=== PATIENT | female | born 1970 | race Caucasian/White ===

== ENCOUNTER → 2016-05-22 | Outpatient (CLI) | payer BC ==
[~2016-05-22] MED LIST: CHOL100010 PO; CRFL PO; ENOX40IN SQ; ERGO1CAP35 PO; GLC/500 PO; HYDR-1838 PO; MULT-1027 PO; ONDA4TAB10 SL; OXYC-292 PO; PARO1TAB27 PO
[2016-05-22 09:24] LABS: BASO % 0.5 %; BASO ABS # 0.03 K/uL (0-0.2); COMPLETE YES; EOS % 1.5 %; HEMATOCRIT 40.9 % (37-47); IG% 0.3 %; LYMPH % 12.2 %; LYMPH ABS # 0.73 K/uL (1.2-3.4); MEAN CELL VOLUME 85.9 fL (80-100); MEAN CORPUSCULAR HEMOGLOBIN 27.5 pg (25-34); MEAN PLATELET VOLUME 10.3 fL (7.4-10.4); MONO % 8.7 %; NEUT % 76.8 %; PLATELET COUNT 266 K/uL (130-400); RED BLOOD COUNT 4.76 M/uL (4.2-5.4)
[2016-05-22 09:40] LABS: ESTIMATED AVERAGE GLUCOSE 171 mg/dl; HA1C FLAG Normal (Normal)
[2016-05-22 10:16] LABS: ALT/SGPT 22 U/L (12-78); BLOOD UREA NITROGEN 12 mg/dl (7-18); CALCIUM 8.6 mg/dl (8.5-10.1); CARBON DIOXIDE 26 mmol/L (21-32); CHLORIDE 102 mmol/L (98-107); CREATININE 0.69 mg/dl (0.60-1.20); GLUCOSE 116 mg/dl (70-99); POTASSIUM 4.1 mmol/L (3.5-5.1); SODIUM 138 mmol/L (136-145)
[2016-05-22 10:20] LABS: ALB/GLOB RATIO 1.2 (0.9-2); ALKALINE PHOSPHATASE 94 U/L (45-117); AST/SGOT 25 U/L (15-37); CHOLESTEROL 194 mg/dl (0-200); CHOLESTEROL/HDL RATIO 5.5; HDL CHOLESTEROL 35 mg/dl; LDL CHOLESTEROL CALCULATED 122 mg/dl; TRIGLYCERIDES 186 mg/dl (0-150); VERY LOW DENSITY LIPOPROT CALC 37 mg/dl
== END | disposition home or self-care (01) ==
LOC: C.LAB1850 07:56
PROVIDERS: ATTEND Family Medicine
DX: D50.9 Iron deficiency anemia, unspecified (principal); E53.8 Deficiency of other specified B group vitamins; E11.9 Type 2 diabetes mellitus without complications

== ENCOUNTER → 2016-06-09 | Outpatient (CLI) | payer BC ==
--- NOTE | 2016-06-09 16:18 | MAMMOGRAPHY REPORT ---
BILATERAL DIGITAL SCREENING MAMMOGRAM TOMOSYNTHESIS WITH CAD: 06/09/2016 CLINICAL HISTORY: Routine screening. Patient has no complaints. TECHNIQUE: Breast tomosynthesis in addition to standard 2D mammography was performed. Current study was also evaluated with a Computer Aided Detection (CAD) system. COMPARISON: Comparison is made to exams dated: 09/17/2010 ultrasound, 09/17/2010 mammogram, 09/04/2010 m ammogram, 06/24/2009 mammogram, and 06/24/2009 ultrasound - [facility]. BREAST COMPOSITION: There are scattered areas of fibroglandular density in both breasts. FINDINGS: There are stable benign-appearing calcifications in the breasts. No suspicious mass, arch itectural distortion or cluster of microcalcifications is seen. IMPRESSION: ACR BI-RADS CATEGORY 1: NEGATIVE There is no mammographic evidence of malignancy. A 1 year screening mammogram is recommended. The p atient will receive written notification of the results. Approximately 10% of breast cancers are not detected with mammography. A negative mammographic repor t should not delay biopsy if a clinically suggestive mass is present. Margot Aguero M.D. ay/:06/09/2016 15:36:25 Technician Helper Instrument: Gaye HERNÁNDEZ)([place]), [facility] letter sent: Normal 1/2 BI-RADS Code: ACR BI-RADS Category 1: Negative
== END | disposition home or self-care (01) ==
LOC: C.MAMM 13:29
PROVIDERS: ATTEND Family Medicine
DX: Z12.31 Encounter for screening mammogram for malignant neoplasm of breast (principal)

== ENCOUNTER 2016-06-18 10:06 | Emergency (ER) | payer BC ==
[~2016-06-18] VITALS: Ht 162.6 cm; Wt 103.6 kg
[~2016-06-18 10:06] MED LIST changes: -CHOL100010 PO; -CRFL PO; -GLC/500 PO; -MULT-1027 PO; -ONDA4TAB10 SL
[2016-06-18 10:09] VITALS: TEMP 36.8; Ht 162.6 cm; Wt 103.6 kg
[2016-06-18] MEDS ORDERED: MULT-1027 PO (10:22)
[2016-06-18] MEDS ORDERED: CHOL100010 PO (10:22)
[2016-06-18] MEDS ORDERED: GLC/500 PO (10:22)
[2016-06-18] MEDS ORDERED: SODIUM CHLORIDE 0.9% 1000ML 1,000 ML IV STA (10:28)
[2016-06-18] MEDS ORDERED: ONDANSETRON INJ 2 MG/ML 2 ML VIAL IV STA (10:28)
[2016-06-18] MEDS ORDERED: KETOROLAC TROMETHAMINE 30 MG/ML VIAL IV STA (10:28)
--- NOTE | 2016-06-18 10:33 | EMERGENCY ROOM VISIT NOTE ---
History Report prepared by Tyler: Carlos Espinosa Under the Supervision of: Dr. Parminder Coley M.D. First contact with patient: 10:15 Chief Complaint: ABDOMINAL PAIN Stated Complaint: ABD. SORENESS, PAIN WHEN EATING/DRINKING Nursing Triage Summary: Pt reports abd discomfort for the past couple days. "Anytime I eat or drink I get upper abd pain. I have been tender and distended for a couple weeks. I had vomiting after I ate. I've had gastric bypass in 2009 and this isn't anything with that. I've had upper and lower GI's done within the past couple years and everything was fine." History of Present Illness The patient is a 46 year old female who presents to the Emergency Room with complaints of persistent abdominal pain that started a few days ago. She describes the pain as a pressure, and the pain is worsened by eating or drinking. She did vomit 2 days ago after eating. The patient denies any diarrhea. She had gastric bypass surgery 6 years ago, and had no complications with that. Her surgical site was reviewed and was fine. The patient notes that she has vasovagal syncope. She also is diabetic. Source of History: patient Onset: A few days ago Position: abdomen Quality: other (pressure) Timing: other (persistent) Modifying Factors (Worsening): eating, drinking Associated Symptoms: + vomiting, No diarrhea Note: No other associated symptoms noted. Review of Systems See HPI for pertinent positives & negatives. A total of 10 systems reviewed and were otherwise negative. Past Medical & Surgical Medical Problems: (1) Diabetes (2) Vasovagal syncope Surgical Problems: (1) Gastric bypass status for obesity Family History Diabetes mellitus FH: cancer Social History Smoking Status: Never Smoker Alcohol Use: none Drug Use: none Marital Status: Housing Status: lives with family Occupation Status: employed Current/Historical Medications Scheduled Cholecalciferol (Vitamin D), 1 TAB PO DAILY Metformin Hcl (Glucophage), 2 TAB PO DAILY Multiple Vitamin (Multi Vitamin), 1 TAB PO DAILY Ondasetron Odt (Zofran Odt), 4 MG SL Q6H Paroxetine (Paxil), 20 MG PO DAILY Sucralfate (Carafate), 10 ML PO QID Allergies Coded Allergies: Sulfa Drugs (Verified Allergy, Mild, 06/18/16) Lisinopril (Verified Adverse Reaction, Intermediate, COUGH, 06/18/16) NSAIDs (Verified Adverse Reaction, Unknown, NEED STOMACH PROTECTION WITH NSAIDS HAD GASTRIC BYPASS, 06/18/16) Physical Exam Vital Signs Date Time Temp Pulse Resp B/P Pulse Ox O2 Delivery O2 Flow Rate FiO2 06/18/16 13:32 64 16 133/85 97 Room Air 06/18/16 10:09 36.8 69 18 129/82 97 Room Air Physical Exam CONSTITUTIONAL: Moderate painful nauseous distress. HEENT: No icterus, moist mucous membranes NECK: No meningismus, trachea is midline. CARDIOVASCULAR: Regular rate, normal perfusion RESPIRATORY: Unlabored breathing. Clear to auscultation. GASTROINTESTINAL: Mild epigastric tenderness. GENITOURINARY: No flank tenderness MUSCULOSKELETAL: Full range of motion NEUROLOGIC: No acute gross focal deficits. PSYCHIATRIC: Normal affect SKIN: Normal for ethnicity. Medical Decision & Procedures ER Provider Diagnostic Interpretation: X-ray results as stated below per my interpretation and radiologist interpretation. Other radiology results as stated below per my review and radiologist interpretation. ULTRASOUND RIGHT UPPER QUADRANT ABDOMEN CLINICAL HISTORY: Epigastric abdominal pain. COMPARISON STUDY: Abdominal ultrasound dated 04/02/2010 TECHNIQUE: Real-time, grayscale, and color flow sonography of the right upper quadrant of the abdomen was performed. Images are reviewed in the transverse and longitudinal planes. FINDINGS: Liver: The liver is enlarged and demonstrates heterogeneously increased echotexture consistent with hepatic steatosis. Note that this degrades acoustic penetration of the liver. There is no intrahepatic biliary ductal dilatation. The main portal vein is patent. Gallbladder: The gallbladder is normal in appearance. No gallstones are identified. There is no gallbladder wall thickening or pericholecystic fluid. A sonographic Mora's sign is reportedly absent. The common bile duct measures up to 0.4 cm in diameter. Pancreas: Visualized portions of the pancreatic head and body are normal in appearance. Right kidney: Survey images of the right kidney demonstrate normal size and echotexture. There is no hydronephrosis. Ascites: None. IMPRESSION: 1. No acute sonographic abnormality is identified. No gallstones are seen. 2. Hepatomegaly and hepatic steatosis. Electronically signed by: Jose Archer M.D. 06/18/2016 12:45 PM Dictated Date/Time: 06/18/2016 12:44 PM SINGLE VIEW CHEST CLINICAL HISTORY: Epigastric abdominal pain. FINDINGS: An AP, portable, upright chest radiograph is compared to study dated 11/18/2012. The examination is degraded by portable technique and patient rotation. The cardiomediastinal silhouette is unremarkable. There are low lung volumes with mild bibasilar atelectasis. The lungs and pleural spaces are otherwise clear. No pneumothorax is seen. The bony thorax is grossly intact. Postoperative change is noted at the esophageal hiatus. IMPRESSION: Low lung volumes with no active disease in the chest. Electronically signed by: Jose Archer M.D. 06/18/2016 10:55 AM Dictated Date/Time: 06/18/2016 10:54 AM Laboratory Results 06/18/16 10:36 Red Blood Count 4.84, Mean Corpuscular Volume 84.5, Mean Corpuscular Hemoglobin 27.7, Mean Corpuscular Hemoglobin Concent 32.8, Mean Platelet Volume 10.8, Neutrophils (%) (Auto) 74.5, Lymphocytes (%) (Auto) 14.1, Monocytes (%) (Auto) 8.9, Eosinophils (%) (Auto) 1.5, Basophils (%) (Auto) 0.8, Neutrophils # (Auto) 3.92, Lymphocytes # (Auto) 0.74, Monocytes # (Auto) 0.47, Eosinophils # (Auto) 0.08, Basophils # (Auto) 0.04 06/18/16 10:36 Test 06/18/16 10:35 06/18/16 10:36 Urine Color YELLOW Urine Appearance CLEAR (CLEAR) Urine pH 6.5 (4.5-7.5) Urine Specific [place] 1.007 (1.000-1.030) Urine Protein NEG (NEG) Urine Glucose (UA) NEG (NEG) Urine Ketones NEG (NEG) Urine Occult Blood NEG (NEG) Urine Nitrite NEG (NEG) Urine Bilirubin NEG (NEG) Urine Urobilinogen NEG (NEG) Urine Leukocyte Esterase TRACE (NEG) Urine WBC (Auto) 1-5 /hpf (0-5) Urine RBC (Auto) 0-4 /hpf (0-4) Urine Hyaline Casts (Auto) 0 /lpf (0-5) Urine Epithelial Cells (Auto) >30 /lpf (0-5) Urine Bacteria (Auto) NEG (NEG) White Blood Count 5.26 K/uL (4.8-10.8) Red Blood Count 4.84 M/uL (4.2-5.4) Hemoglobin 13.4 g/dL (12.0-16.0) Hematocrit 40.9 % (37-47) Mean Corpuscular Volume 84.5 fL (80-100) Mean Corpuscular Hemoglobin 27.7 pg (25-34) Mean Corpuscular Hemoglobin Concent 32.8 g/dl (32-36) Platelet Count 249 K/uL (130-400) Mean Platelet Volume 10.8 fL (7.4-10.4) Neutrophils (%) (Auto) 74.5 % Lymphocytes (%) (Auto) 14.1 % Monocytes (%) (Auto) 8.9 % Eosinophils (%) (Auto) 1.5 % Basophils (%) (Auto) 0.8 % Neutrophils # (Auto) 3.92 K/uL (1.4-6.5) Lymphocytes # (Auto) 0.74 K/uL (1.2-3.4) Monocytes # (Auto) 0.47 K/uL (0.11-0.59) Eosinophils # (Auto) 0.08 K/uL (0-0.5) Basophils # (Auto) 0.04 K/uL (0-0.2) RDW Standard Deviation 44.9 fL (36.4-46.3) RDW Coefficient of Variation 14.5 % (11.5-14.5) Immature Granulocyte % (Auto) 0.2 % Immature Granulocyte # (Auto) 0.01 K/uL (0.00-0.02) Anion Gap 11.0 mmol/L (3-11) Est Creatinine Clear Calc Drug Dose 110.5 ml/min Estimated GFR () 112.9 Estimated GFR (Non- 97.4 BUN/Creatinine Ratio 13.2 (10-20) Calcium Level 8.9 mg/dl (8.5-10.1) Total Bilirubin 0.5 mg/dl (0.2-1) Direct Bilirubin < 0.1 mg/dl (0-0.2) Aspartate Amino Transf (AST/SGOT) 25 U/L (15-37) Alanine Aminotransferase (ALT/SGPT) 24 U/L (12-78) Alkaline Phosphatase 104 U/L (45-117) Troponin I < 0.015 ng/ml (0-0.045) Total Protein 7.7 gm/dl (6.4-8.2) Albumin 4.1 gm/dl (3.4-5.0) Lipase 76 U/L (73-393) Labs reviewed by ED physician. Medications Administered Medications (Trade) Dose Ordered Sig/Edwin Route Start Time Stop Time Status Last Admin Dose Admin Sodium Chloride (Nss 1000ml) 1,000 ml @ 0 mls/hr Q0M STAT IV 06/18/16 10:28 06/18/16 10:31 DC 06/18/16 10:56 0 MLS/HR Ondansetron HCl (Zofran Inj) 4 mg NOW STAT IV 06/18/16 10:28 06/18/16 10:31 DC 06/18/16 10:56 4 MG Ketorolac Tromethamine (Toradol Inj) 30 mg NOW STAT IV 06/18/16 10:28 06/18/16 10:31 DC 06/18/16 10:56 30 MG ECG Indication: abdominal pain Rate (beats per minute): 68 Rhythm: normal sinus Findings: no ectopy, other (nonspecific-ST findings) ED Course 1020: Past medical records reviewed. The patient was evaluated in room B12B. A complete history and physical examination was performed. 1028: Ordered Toradol Inj 30 mg IV, Zofran Inj 4 mg IV, NSS 1000 ml @ 0 mls/hr Wide Open IV. 1106: I reevaluated the patient and she is resting comfortably. 1348: I reevaluated the patient, and she is going to decide whether or not she wants a CT scan. 1426: I reevaluated the patient and she wants to go home. The patient verbally expressed understanding and agreement of the treatment plan. The patient will be discharged. Medical Decision Differential diagnoses include: viral syndrome, pancreatitis, cholecystitis, heart disease. 46-year-old presents to emergency department for epigastric discomfort and nonbilious nonbloody vomiting without diarrhea over the last day or so. History of gastric bypass 2010 without complications. Mild to moderate epigastric discomfort. Screening evaluation including renal artery ultrasound, lipase, LFTs, EKG, troponin and chest x-ray were all within normal limits. Patient tolerated by mouth prior to discharge after antiemetics IV. We discussed the pros and cons as well as risks and benefits of CT scan. Patient understands to follow-up with her gastric bypass surgeon or return to emergency room for any worsening worrisome symptoms. Carafate 4 times a day and Zofran ODT's written when necessary. Impression Primary Impression: Epigastric pain Scribe Attestation The scribe's documentation has been prepared under my direction and personally reviewed by me in its entirety. I confirm that the note above accurately reflects all work, treatment, procedures, and medical decision making performed by me. Departure Information Dispostion Home / Self-Care Prescriptions Ondasetron Odt (ZOFRAN ODT) 4 Mg Tab 4 MG SL Q6H for Nausea, #20 TAB Prov: Parminder Coley MD 06/18/16 Sucralfate (CARAFATE) 1 Gm/10 Ml Sadie 10 ML PO QID for 7 Days, #280 ML Prov: Parminder Coley MD 06/18/16 Referrals Usha Rider MD (PCP) Forms Call Back Authorization, HOME CARE DOCUMENTATION FORM, IMPORTANT VISIT INFORMATION Patient Instructions ED Epigastric Pain ERWIN, Katie [facility]
--- NOTE | 2016-06-18 10:56 | DIAGNOSTIC IMAGING REPORT ---
SINGLE VIEW CHEST CLINICAL HISTORY: Epigastric abdominal pain. FINDINGS: An AP, portable, upright chest radiograph is compared to study dated 11/18/2012. The examination is degraded by portable technique and patient rotation. The cardiomediastinal silhouette is unremarkable. There are low lung volumes with mild bibasilar atelectasis. The lungs and pleural spaces are otherwise clear. No pneumothorax is seen. The bony thorax is grossly intact. Postoperative change is noted at the esophageal hiatus. IMPRESSION: Low lung volumes with no active disease in the chest. Electronically signed by: Jose Archer M.D. 06/18/2016 10:55 AM Dictated Date/Time: 06/18/2016 10:54 AM
[2016-06-18 11:23] LABS: BASO % 0.8 %; BASO ABS # 0.04 K/uL (0-0.2); COMPLETE YES; EOS % 1.5 %; HEMATOCRIT 40.9 % (37-47); IG% 0.2 %; LYMPH % 14.1 %; LYMPH ABS # 0.74 K/uL (1.2-3.4); MEAN CELL VOLUME 84.5 fL (80-100); MEAN CORPUSCULAR HEMOGLOBIN 27.7 pg (25-34); MEAN CORPUSCULAR HGB CONC 32.8 g/dl (32-36); MEAN PLATELET VOLUME 10.8 fL (7.4-10.4); MONO % 8.9 %; NEUT % 74.5 %; PLATELET COUNT 249 K/uL (130-400); RED BLOOD COUNT 4.84 M/uL (4.2-5.4); WHITE BLOOD COUNT 5.26 K/uL (4.8-10.8)
[2016-06-18 11:26] LABS: URINE APPEARANCE CLEAR (CLEAR); URINE BILIRUBIN NEG (NEG); URINE COLOR YELLOW; URINE EPITHELIAL CELL AUTO >30 /lpf (0-5); URINE NITRITE NEG (NEG); URINE PH 6.5 (4.5-7.5); URINE SPECIFIC GRAVITY 1.007 (1.000-1.030); UROBILINOGEN NEG (NEG)
[2016-06-18 11:34] LABS: MANUAL MICROSCOPIC REQUIRED? NO; REVIEW REQ? NO
[2016-06-18 11:41] LABS: ALT/SGPT 24 U/L (12-78); BLOOD UREA NITROGEN 10 mg/dl (7-18); BUN/CREATININE RATIO 13.2 (10-20); CALCIUM 8.9 mg/dl (8.5-10.1); CARBON DIOXIDE 24 mmol/L (21-32); CHLORIDE 103 mmol/L (98-107); CREATININE 0.73 mg/dl (0.60-1.20); GLUCOSE 111 mg/dl (70-99); SODIUM 138 mmol/L (136-145)
[2016-06-18 11:45] LABS: ALKALINE PHOSPHATASE 104 U/L (45-117); AST/SGOT 25 U/L (15-37)
--- NOTE | 2016-06-18 12:46 | DIAGNOSTIC IMAGING REPORT ---
ULTRASOUND RIGHT UPPER QUADRANT ABDOMEN CLINICAL HISTORY: Epigastric abdominal pain. COMPARISON STUDY: Abdominal ultrasound dated 04/02/2010 TECHNIQUE: Real-time, grayscale, and color flow sonography of the right upper quadrant of the abdomen was performed. Images are reviewed in the transverse and longitudinal planes. FINDINGS: Liver: The liver is enlarged and demonstrates heterogeneously increased echotexture consistent with hepatic steatosis. Note that this degrades acoustic penetration of the liver. There is no intrahepatic biliary ductal dilatation. The main portal vein is patent. Gallbladder: The gallbladder is normal in appearance. No gallstones are identified. There is no gallbladder wall thickening or pericholecystic fluid. A sonographic Mora's sign is reportedly absent. The common bile duct measures up to 0.4 cm in diameter. Pancreas: Visualized portions of the pancreatic head and body are normal in appearance. Right kidney: Survey images of the right kidney demonstrate normal size and echotexture. There is no hydronephrosis. Ascites: None. IMPRESSION: 1. No acute sonographic abnormality is identified. No gallstones are seen. 2. Hepatomegaly and hepatic steatosis. Electronically signed by: Jose Archer M.D. 06/18/2016 12:45 PM Dictated Date/Time: 06/18/2016 12:44 PM
[2016-06-18] MEDS ORDERED: ONDA4TAB10 SL (14:24)
[2016-06-18] MEDS ORDERED: CRFL PO (14:24)
[2016-06-18 14:35] VITALS: BP 136/78; PULSE 70; O2SAT 98
== END 2016-06-18 14:35 | disposition home or self-care (01) ==
LOC: C.EDB 10:08
DX: R10.13 Epigastric pain (principal); R55 Syncope and collapse; E11.9 Type 2 diabetes mellitus without complications; Z98.84 Bariatric surgery status; R16.0 Hepatomegaly, not elsewhere classified; K76.0 Fatty (change of) liver, not elsewhere classified

== ENCOUNTER 2021-11-14 11:10 | Inpatient (IN) ==
--- NOTE | 2021-11-14 11:29 | Emergency Department Note ---
Impression & Plan Acute GI bleeding, Symptomatic anemia ED Provider Note NAME: CHAGO CASILLAS AGE: 51 SEX: F : 1970 ARRIVES VIA: Walk-In INFORMANT: Patient, ED PROVIDER(S): Alexandre Aviles MD Chief Complaint: Weakness, shortness of breath, slurred speech, lower blood pressure HPI: Patient was seen due to concern for lower blood pressure and associated weakness. The patient states she has noticed this over the last 3 days with associated blood pressures at 90s over 60s. Patient denies any chest pains but has felt tingling mildly short of breath. The patient does have a known history of B-cell lymphoma and had followed with Dr. Fernando in the past. The patient is also noted some slurred speech over the last 3 days. Patient has had dark stools. The patient does not take any blood thinning medications. The patient was to have a CT scan of the abdomen pelvis within the week as a follow-up. Patient states that she has been in remission since last year. No active treatment. Patient denies any cough or fevers. No chills. ROS: See HPI for pertinent positives and negatives. A total of 10 systems were reviewed and otherwise negative. Past medical history: See below Surgical history: See below Social history: See below Physical Exam: GENERAL: Pale and tired in appearance, wearing a mask. EYE EXAM: Normal conjunctiva. PERRL, no anisocoria and EOM's grossly intact w/o pain. NECK: Supple, no nuchal rigidity, no adenopathy, non-tender. No signs of meningismus. LUNGS: Clear to auscultation. Normal chest wall mechanics. HEART: NSR, no MRG. ABDOMEN: Abdomen soft, non-tender, normo-active bowel sounds, no masses, no rebound or guarding. BACK: No CVA TTP. SKIN: No rashes and no bruising. Rectal exam: No obvious external hemorrhoids or bleeding, dark stool, heme positive. No masses. UPPER EXTREMITIES: Upper extremities are grossly normal. LOWER EXTREMITIES: Grossly normal, no edema. NEURO EXAM: A&O x3, cranial nerves II-XII grossly intact, normal speech, moves all 4 extremities on command w/o issue. Differential diagnoses: Diverticulosis, AVM, coagulopathy, colitis, inflammatory bowel disease, malignancy, Shanika-Carr tear, esophagitis, peptic ulcer disease, variceal bleed, gastritis, epistaxis, fissure, hemorrhoids, as well as other pathologies. Course: Patient was seen and evaluated the bedside. Full history physical exam was performed. EKG interpreted by me Patient was sinus rhythm, rate of 76, normal intervals, normal axis, no obvious ST elevations. Imaging Studies: See Below Cardiac monitoring: An order was placed for continuous cardiac monitoring. The monitor shows a rate of 77 with sinus rhythm. MDM: Patient was seen due to concern for shortness of breath and weakness. The patient did have blood work completed was noted to have significant drop in her hemoglobin from greater than 12 to less than 7. After further discussion with the patient the patient states that she has been having dark stools for approximately 1 week. The patient was consented for transfusion. Rectal exam was performed with a highway painter helper which showed melenic stool and was heme positive. The patient does not take blood thinners. The patient states that she has had a prior history of negative colonoscopies and does not use blood thinners or NSAIDs. Patient [place] alcohol tobacco or drug use. I do believe that this is likely etiology of the patient's symptoms including the patient's slurred speech weakness fatigue and shortness of breath I believe she is suffering from symptomatic anemia. I did speak with the on-call hospitalist Dr. Askew. I subsequently did speak with Dr. Thomson to make him aware given the patient's profound likely blood loss anemia. Patient also had been started on PPI bolus and drip upon finding out the patient did have a GI bleed. I also did speak with on-call hematology Dr. Hood who recommended a CT abdomen pelvis as well as biopsies of the colon as the patient may have a recurrence of lymphoma in the intestine. I did convey that to Dr. Askew. The patient was admitted to the medicine service. Critical Care: I have personally spent 45 minutes of critical care time in direct management of this patient. This includes bedside care, interpretation of diagnostic studies, and testing, discussion with consultants, patient, and family members, and other require inpatient management activities. This 45 minutes is in excess of all separately billable procedures. Past Med/Surg History Medical History Abdominal mass Anemia Anxiety with depression B-cell lymphoma treated with chemotherapy, follow up PET Scan 10/2020. DM2 (diabetes mellitus, type 2) NIDDM Iron deficiency anemia Lymphoma Osteoarthritis Sleep apnea no device since losing weight Syncope Per patient she takes paxil for this---follows with Dr. Enrico Jurado in [place], [place]. Surgical History H/O abdominal surgery (06/11/20) Diagnostic Laparoscopy, Biopsy Abdominal Wall Mass, Partial Omentectomy Dr. Mac 06/11/20 History of colonoscopy History of dental surgery dental implant History of esophagogastroduodenoscopy (EGD) History of Jalen-en-Y gastric bypass (~2009) History of tonsillectomy History of total left knee replacement (TKR) (~2012) History of total right knee replacement (TKR) (~2012) History of wisdom tooth extraction Port-A-Cath in place (06/11/20) Insertion of Mediport Left Subclavian Dr. Mac 06/11/20 Family History Grandmother Lung cancer Mother Diabetes Father No problems noted. Family/Other Substance abuse Family/Other Substance abuse Mental health disorder Family/Other Substance abuse Family/Other Substance abuse Grandmother (Maternal) Diabetes Colorectal cancer Grandfather (Maternal) Lung cancer Smoker Stroke Grandmother (Paternal) No problems noted. Grandfather (Paternal) No problems noted. Family/Other Diabetes Multiple sclerosis Aunt Diabetes Other Alcoholic Breast cancer Heart disease Parkinsons Prostate cancer Denies family history of Ovarian cancer No family history of adverse response to anesthesia Myocardial infarction Social History Smoking Status: Never smoker Second Hand Exposure: No; Hx Alcohol Use: No Hx Substance Use: No Preferred Language: Kazakh Communication Ability: Effective Visual Impairment: No Limitations Hearing Ability: Normal Shipping & Receiving Lead Required: No Beliefs That Will Affect Care: None marital status: Current Living Situation: Spouse current occupational status: employed current occupation: Supervisor Winter Feels Safe at Home: Yes Childhood Exposure to Second-Hand Smoke: No Diet Comment: low sugar during the past year weight has: increased > 10 lbs Dental Care, Regularly: Yes Physical Activity Frequency: 1-2 Times per Week Seatbelt Use: always Sunscreen Use: Yes Assistive Devices: Glasses Allergies Allergies Allergy/AdvReac Type Severity Reaction Status Date / Time Sulfa (Sulfonamide Allergy Intermediate Hives Verified 11/14/21 10:30 Antibiotics) oxycodone Allergy Mild ITCHINESS Verified 11/14/21 10:30 bupropion AdvReac Intermediate Dizziness Verified 11/14/21 10:30 empagliflozin AdvReac Intermediate Dizziness Verified 11/14/21 10:30 [From Jardiance] lisinopril AdvReac Intermediate COUGH Verified 11/14/21 10:30 NSAIDS (Non-Steroidal AdvReac Mild NEED Verified 11/14/21 10:30 Anti-Inflamma STOMACH PROTECTION WITH NSAIDS HAD GASTRIC BYPASS Home Meds Home Medications Medication Instructions Recorded Confirmed multivitamin (Multiple Vitamins) 1 tab PO QAM 11/16/18 11/14/21 gabapentin 300 mg capsule 300 mg PO HS 11/07/20 11/14/21 iron infusion 1 dose IV DIRECTED PRN 12/10/20 11/14/21 omeprazole 20 mg capsule,delayed 20 mg PO BID 11/14/21 11/14/21 release triamcinolone acetonide 0.1 % 1 applic TOP BID PRN 11/14/21 11/14/21 topical cream Previous Rx's Medication Instructions Recorded Dexcom G6 Sensor (blood-glucose #9 ea NS 08/23/20 sensor) Dexcom G6 Transmitter #1 ea NS 08/23/20 (blood-glucose transmitter) pen needle, diabetic 32 gauge x #100 ea 08/26/2005/20" (Novofine 32) paroxetine HCl 30 mg tablet 30 mg PO QAM #30 tab 12/30/20 metformin 850 mg tablet 850 mg PO BID #180 tab 05/05/21 dulaglutide 1.5 mg/0.5 mL 1.5 mg SUBCUT WEEKLY #2 ml 09/22/21 subcutaneous [facility] meloxicam 15 mg tablet 15 mg PO QPM #90 tab 09/24/21 Results & Data (ED) Vital Signs Vital Signs - 24 hr 11/14/21 11:20 11/14/21 11:45 11/14/21 11:46 Temperature 36.3 C L Temperature Source Temporal Artery Scan Pulse Rate 82 79 Pulse Rate from SpO2 Sensor Respiratory Rate 18 20 Respiratory Effort / Characteristics Non-Labored Respiratory Depth Normal Blood Pressure 111/71 Blood Pressure Mean 84 Pulse Oximetry 98 95 Oxygen Delivery Method Room Air Room Air Room Air Sepsis Recent Fever Within 48 Hours No Sepsis New/Unexplained Change in Mental Status No Sepsis Action Taken by Nursing No Action Required 11/14/21 12:00 11/14/21 12:30 11/14/21 13:02 Temperature Temperature Source Pulse Rate 77 75 78 Pulse Rate from SpO2 Sensor 77 76 79 Respiratory Rate 18 16 23 Respiratory Effort / Characteristics Respiratory Depth Blood Pressure 115/69 105/65 116/67 Blood Pressure Mean 84 78 83 Pulse Oximetry 96 96 99 Oxygen Delivery Method Sepsis Recent Fever Within 48 Hours Sepsis New/Unexplained Change in Mental Status Sepsis Action Taken by Custodial Medications Current Medication List: was personally reviewed by me Laboratory Data Attestation: I reviewed the patient's lab results. Result diagrams: 11/14/21 11:35 11/14/21 11:35 Lab Results 11/14/21 11/14/21 11/14/21 Range/Units 11:35 11:35 11:35 WBC 4.43 L (4.8-10.8) K/uL RBC 2.24 L (4.2-5.4) M/uL Hgb 6.9 L* (12.0-16.0) g/dL Hct 20.8 L* (37-47) % MCV 92.9 (80-100) fL MCH 30.8 (25-34) pg MCHC 33.2 (32-36) g/dL RDW Std Deviation 46.6 H (36.4-46.3) fL RDW Coeff of Giorgio 14.6 H (11.5-14.5) % Plt Count 225 (130-400) K/uL MPV 9.1 (7.4-10.4) fL Immature Gran % (Auto) 0.7 % Neut % (Auto) 69.7 % Lymph % (Auto) 17.8 % [place] % (Auto) 10.2 % Eos % (Auto) 1.4 % Baso % (Auto) 0.2 % Reticulocyte % (Auto) (0.5-2.0) % Neut # (Auto) 3.09 (1.4-6.5) K/uL Lymph # (Auto) 0.79 L (1.2-3.4) K/uL [place] # (Auto) 0.45 (0.11-0.59) K/uL Eos # (Auto) 0.06 (0-0.5) K/uL Baso # (Auto) 0.01 (0-0.2) K/uL Reticulocyte # (0.02-0.10) 10^6/uL Immature Gran # (Auto) 0.03 H (0.00-0.02) K/uL Absolute Nucleated RBC 0.05 H (0-0) K/uL Nucleated RBC % (auto) 1.1 % Polychromasia 1+ Anisocytosis Present PT 10.5 (9.0-12.0) Seconds INR 1.0 (0.9-1.1) APTT 55.2 H* (21.0-31.0) Seconds PTT Ratio 2.0 Sodium 137 (136-145) mmol/L Potassium 4.2 (3.5-5.1) mmol/L Chloride 105 (98-107) mmol/L Carbon Dioxide 24 (21-32) mmol/L Anion Gap 8 (3-11) BUN 18 (6-23) mg/dl Creatinine 0.59 L (0.6-1.2) mg/dl Est Cr Clr Drug Dosing 119.1 ml/min Est GFR ( Amer) 121.3 ml/min Est GFR (Non-Af Amer) 104.6 ml/min BUN/Creatinine Ratio 30.5 H (10-20) Glucose 127 H (70-99(Fasting)) mg/dl Calcium 8.8 (8.5-10.1) mg/dl Iron (35-150) mcg/dl TIBC (250-450) mcg/dl Unsaturated IBC (155-355) mcg/dl Transferrin % Sat (15-50) % Ferritin (8-388) ng/ml Total Bilirubin 0.3 (0.2-1.0) mg/dl AST 15 (13-39) U/L ALT 12 (7-52) U/L Alkaline Phosphatase 66 (34-104) U/L Troponin I High Sens < 2.3 (0-14) pg/ml Total Protein 5.8 L (6.0-8.3) gm/dl Albumin 3.7 (3.4-5.0) gm/dl Globulin 2.1 L (2.5-4.0) gm/dl Albumin/Globulin Ratio 1.8 (0.9-2) Vitamin B12 (180-914) pg/ml Folate (>5.38) ng/ml Blood Type Antibody Screen Crossmatch 11/14/21 11/14/21 11/14/21 Range/Units 11:35 11:35 11:35 WBC (4.8-10.8) K/uL RBC (4.2-5.4) M/uL Hgb (12.0-16.0) g/dL Hct (37-47) % MCV (80-100) fL MCH (25-34) pg MCHC (32-36) g/dL RDW Std Deviation (36.4-46.3) fL RDW Coeff of Giorgio (11.5-14.5) % Plt Count (130-400) K/uL MPV (7.4-10.4) fL Immature Gran % (Auto) % Neut % (Auto) % Lymph % (Auto) % [place] % (Auto) % Eos % (Auto) % Baso % (Auto) % Reticulocyte % (Auto) 7.1 H (0.5-2.0) % Neut # (Auto) (1.4-6.5) K/uL Lymph # (Auto) (1.2-3.4) K/uL [place] # (Auto) (0.11-0.59) K/uL Eos # (Auto) (0-0.5) K/uL Baso # (Auto) (0-0.2) K/uL Reticulocyte # 0.16 H (0.02-0.10) 10^6/uL Immature Gran # (Auto) (0.00-0.02) K/uL Absolute Nucleated RBC (0-0) K/uL Nucleated RBC % (auto) % Polychromasia Anisocytosis PT (9.0-12.0) Seconds INR (0.9-1.1) APTT (21.0-31.0) Seconds PTT Ratio Sodium (136-145) mmol/L Potassium (3.5-5.1) mmol/L Chloride (98-107) mmol/L Carbon Dioxide (21-32) mmol/L Anion Gap (3-11) BUN (6-23) mg/dl Creatinine (0.6-1.2) mg/dl Est Cr Clr Drug Dosing ml/min Est GFR ( Amer) ml/min Est GFR (Non-Af Amer) ml/min BUN/Creatinine Ratio (10-20) Glucose (70-99(Fasting)) mg/dl Calcium (8.5-10.1) mg/dl Iron 55 (35-150) mcg/dl TIBC 387 (250-450) mcg/dl Unsaturated IBC 332 (155-355) mcg/dl Transferrin % Sat 14 L (15-50) % Ferritin 12.9 (8-388) ng/ml Total Bilirubin (0.2-1.0) mg/dl AST (13-39) U/L ALT (7-52) U/L Alkaline Phosphatase (34-104) U/L Troponin I High Sens (0-14) pg/ml Total Protein (6.0-8.3) gm/dl Albumin (3.4-5.0) gm/dl Globulin (2.5-4.0) gm/dl Albumin/Globulin Ratio (0.9-2) Vitamin B12 90 L (180-914) pg/ml Folate 13.34 (>5.38) ng/ml Blood Type Antibody Screen Crossmatch 11/14/21 Range/Units 11:45 WBC (4.8-10.8) K/uL RBC (4.2-5.4) M/uL Hgb (12.0-16.0) g/dL Hct (37-47) % MCV (80-100) fL MCH (25-34) pg MCHC (32-36) g/dL RDW Std Deviation (36.4-46.3) fL RDW Coeff of Giorgio (11.5-14.5) % Plt Count (130-400) K/uL MPV (7.4-10.4) fL Immature Gran % (Auto) % Neut % (Auto) % Lymph % (Auto) % [place] % (Auto) % Eos % (Auto) % Baso % (Auto) % Reticulocyte % (Auto) (0.5-2.0) % Neut # (Auto) (1.4-6.5) K/uL Lymph # (Auto) (1.2-3.4) K/uL [place] # (Auto) (0.11-0.59) K/uL Eos # (Auto) (0-0.5) K/uL Baso # (Auto) (0-0.2) K/uL Reticulocyte # (0.02-0.10) 10^6/uL Immature Gran # (Auto) (0.00-0.02) K/uL Absolute Nucleated RBC (0-0) K/uL Nucleated RBC % (auto) % Polychromasia Anisocytosis PT (9.0-12.0) Seconds INR (0.9-1.1) APTT (21.0-31.0) Seconds PTT Ratio Sodium (136-145) mmol/L Potassium (3.5-5.1) mmol/L Chloride (98-107) mmol/L Carbon Dioxide (21-32) mmol/L Anion Gap (3-11) BUN (6-23) mg/dl Creatinine (0.6-1.2) mg/dl Est Cr Clr Drug Dosing ml/min Est GFR ( Amer) ml/min Est GFR (Non-Af Amer) ml/min BUN/Creatinine Ratio (10-20) Glucose (70-99(Fasting)) mg/dl Calcium (8.5-10.1) mg/dl Iron (35-150) mcg/dl TIBC (250-450) mcg/dl Unsaturated IBC (155-355) mcg/dl Transferrin % Sat (15-50) % Ferritin (8-388) ng/ml Total Bilirubin (0.2-1.0) mg/dl AST (13-39) U/L ALT (7-52) U/L Alkaline Phosphatase (34-104) U/L Troponin I High Sens (0-14) pg/ml Total Protein (6.0-8.3) gm/dl Albumin (3.4-5.0) gm/dl Globulin (2.5-4.0) gm/dl Albumin/Globulin Ratio (0.9-2) Vitamin B12 (180-914) pg/ml Folate (>5.38) ng/ml Blood Type A Positive Antibody Screen NEGATIVE Crossmatch See Detail Administered Medications Pantoprazole Sodium 40 mg/ (Dextrose) 100 mls @ 20 mls/hr IV Q5H HARSHIL Stop: 12/14/21 12:44 Last Admin: 11/14/21 13:40 Dose: 8 mg/hr, 20 mls/hr Documented by: [id number] Insulin Aspart (Insulin Aspart Per Unit) 0 units SC ACHS HARSHIL Stop: 12/14/21 16:53 Last Admin: 11/14/21 17:06 Dose: Not Given Documented by: [id number] Discontinued Medications Sodium Chloride (Nss 1000ml) 1,000 mls @ 999 mls/hr IV .Q1H1M HARSHIL Stop: 11/14/21 12:45 Last Infusion: 11/14/21 12:56 Dose: 0 mls/hr Documented by: [id number] Admin: 11/14/21 11:55 Dose: 999 mls/hr Documented by: [id number] Pantoprazole Sodium (Protonix Bolus/Drip) 0 mls @ 1 mls/hr IV ONE STA Stop: 11/14/21 12:24 Last Admin: 11/14/21 13:40 Dose: Not Given Documented by: [id number] Pantoprazole Sodium 80 mg/ (Dextrose) 120 mls @ 400 mls/hr IV NOW ONE Stop: 11/14/21 12:40 Last Infusion: 11/14/21 13:35 Dose: 0 mls/hr Documented by: [id number] Admin: 11/14/21 13:17 Dose: 400 mls/hr Documented by: [id number] Ioversol (Optiray 320 100ml) 93 ml IV ONCE ONE Stop: 11/14/21 16:19 Last Admin: 11/14/21 16:18 Dose: 93 ml Documented by: [id number] Ondansetron HCl (Ondansetron Inj 2 Mg/Ml 2 Ml Vial) 4 mg IV NOW STA Stop: 11/14/21 11:47 Last Admin: 11/14/21 11:55 Dose: Not Given Documented by: [id number] Discharge Plan Visit Data Chief Complaint: Dizziness Stated Complaint: REF BY DR, DIZZINESS, LOW BP ED Provider: Alexandre Aviles Discharge Problem: Acute GI bleeding, Symptomatic anemia Patient Disposition: Admitted As Inpatient Discharge Instructions Interventions: ED Discharge Assessment Last Done: 11/14/21 16:00
[2021-11-14] MEDS ORDERED: SODIUM CHLORIDE 0.9% 1000ML 1,000 ML IV SCH (11:45)
[2021-11-14] MEDS ORDERED: ONDANSETRON INJ 2 MG/ML 2 ML VIAL IV STA (11:46)
[2021-11-14 12:15] LABS: Hematocrit (blood only) 20.8 % (37-47); Hemoglobin 6.9 g/dL (12.0-16.0); Mean Corpuscular Hemoglobin 30.8 pg (25-34); Mean Corpuscular Hgb Conc 33.2 g/dL (32-36); Mean Corpuscular Volume 92.9 fL (80-100); Mean Platelet Volume 9.1 fL (7.4-10.4); Nucleated RBC # (auto) 0.05 K/uL (0-0); Nucleated RBC % (auto) 1.1 %; Platelet Count 225 K/uL (130-400); RDW Coefficient of Variation 14.6 % (11.5-14.5); RDW Standard Deviation 46.6 fL (36.4-46.3); Red Blood Count 2.24 M/uL (4.2-5.4); White Blood Count 4.43 K/uL (4.8-10.8)
[2021-11-14 12:23] LABS: Anisocytosis Present; Basophils # (auto) 0.01 K/uL (0-0.2); Basophils % (auto) 0.2 %; Eosinophils # (auto) 0.06 K/uL (0-0.5); Eosinophils % (auto) 1.4 %; Immature Granulocytes # (auto) 0.03 K/uL (0.00-0.02); Immature Granulocytes % (auto) 0.7 %; Lymphocytes # (auto) 0.79 K/uL (1.2-3.4); Lymphocytes % (auto) 17.8 %; Monocytes # (auto) 0.45 K/uL (0.11-0.59); Monocytes % (auto) 10.2 %; Neutrophils # (auto) 3.09 K/uL (1.4-6.5); Neutrophils % (auto) 69.7 %; Polychromasia 1+
[2021-11-14] MEDS ORDERED: PANTOprazole 80 MG in DEXTROSE 5% 100 ML IV ONE (12:23)
[2021-11-14] MEDS ORDERED: SODIUM CHLORIDE 0.9% 250 ML IV PRN (12:23)
[2021-11-14] MEDS ORDERED: PANTOPRAZOLE BOLUS/DRIP 1 EA IV STA (12:23)
[2021-11-14 12:28] LABS: Troponin I High Sensitivity < 2.3 pg/ml (0-14)
[2021-11-14 12:29] LABS: Alanine Aminotransferase 12 U/L (7-52); Albumin Globulin Ratio 1.8 (0.9-2); Albumin Level 3.7 gm/dl (3.4-5.0); Alkaline Phosphatase 66 U/L (34-104); Anion Gap 8 (3-11); Aspartate Aminotransferase 15 U/L (13-39); BUN Creatinine Ratio 30.5 (10-20); Bilirubin,Total 0.3 mg/dl (0.2-1.0); Blood Urea Nitrogen 18 mg/dl (6-23); Calcium 8.8 mg/dl (8.5-10.1); Carbon Dioxide 24 mmol/L (21-32); Chloride 105 mmol/L (98-107); Creatinine Clr Calc Pharmacy 119.1 ml/min; Est GFR (African American) 121.3 ml/min; Est GFR (Non-African American) 104.6 ml/min; Globulin 2.1 gm/dl (2.5-4.0); Glucose 127 mg/dl (70-99(Fasting)); Potassium 4.2 mmol/L (3.5-5.1); Sodium 137 mmol/L (136-145); Total Protein 5.8 gm/dl (6.0-8.3)
[2021-11-14 12:41] LABS: Prothrombin Time 10.5 Seconds (9.0-12.0)
[2021-11-14 12:53] LABS: Partial Thromboplastin Time 55.2 Seconds (21.0-31.0)
--- NOTE | 2021-11-14 13:05 | Electrocardiogram Report ---
Test Reason : Blood Pressure : / mmHG Vent. Rate : 076 BPM Atrial Rate : 076 BPM P-R Int : 152 ms QRS Dur : 078 ms QT Int : 386 ms P-R-T Axes : 037 047 033 degrees QTc Int : 434 ms Normal sinus rhythm Diffuse Minor Nonspecific T wave abnormality Abnormal ECG When compared with ECG of 24-JUN-2020 09:46, No significant change was found Confirmed by Wilber Gusman ([id number]) on 11/14/2021 1:05:12 PM Referred By: Usha Rider Confirmed By:Wilber Gusman
--- NOTE | 2021-11-14 13:14 | History & Physical Report ---
Date of Service November 14, 2021 Assessment & Plan (1) Acute blood loss anemia: Plan: IV pantoprazole 80mg bolus and IV drip 2 units packed RBCs, repeat Hgb 2 hours following 2nd unit NPO except meds Consult gastroenterology PTT notably increased, would repeat with reflex mixing study if remains elevated once stable and finished blood transfusions (2) Acute GI bleeding: Plan: As above (3) Iron deficiency anemia: Plan: Of note she has history of iron deficiency anemia last year receiving Feraheme through hematology. EGD and colonoscopy 10/2020 for iron def. workup - no GI bleeding at that time. Transferrin saturation currently 14%, ferritin 12.9 ng/ml. B12 level 90 - start cyanocobalamin 1000 mcg IM x3 days (4) H/O gastric bypass: (5) DM2 (diabetes mellitus, type 2): Plan: HbA1C 7.9 (although notably this was in the setting of acute GI bleed with hindsight). Hold metformin Novolog sliding scale for correction only initially 45 mg/dL/unit (6) B-cell lymphoma: Plan: CT A/P to assess for recurrent lymphoma of GI tract Plan: VTE Prophylaxis - SCDs Diet - NPO except meds Disposition - admit to PCU Admission and Anticipated Discharge Date Admission Date: November 14, 2021 History of Present Illness Chief Complaint: Shortness of breath, fatigue and dizziness Primary Care Provider: Usha Rider MD Harleen Schumacher is a 51 year old female with history of gastric bypass and diffuse large B-cell lymphoma s/p R-CHOP completed 10/2020 who presents to the ER with low blood pressure, melena and dizziness. Symptoms have been ongoing for the last 4 days but much worse the last 2. She was seen by her PCP today and blood pressure was 90/60 therefore she was sent to the ER for further workup. She t akes meloxicam daily for osteoarthritis although this is not a new medication and no recent change in dose. She takes omeprazole 20mg PO BID for years and has been compliant with this. She does note mildly increased discomfort with her umbilical hernia but this has always reduced without difficulty. Colonoscopy and EGD 10/2020 as part of iron def. anemia workup - no GI bleeding/ulcers noted at that time with intact staple gastrojejunal anastomosis. In the ER BP initially 100/70, now 11/71 after 1L NSS bolus. Hemoglobin 6.9 from prior baseline 1 week previously 12.7. She was prescribed 2 units packed RBCs. PTT elevated to 55.2 however Platelets normal. Allergies Allergy/AdvReac Type Severity Reaction Status Date / Time Sulfa (Sulfonamide Allergy Intermediate Hives Verified 11/14/21 10:30 Antibiotics) oxycodone Allergy Mild ITCHINESS Verified 11/14/21 10:30 bupropion AdvReac Intermediate Dizziness Verified 11/14/21 10:30 empagliflozin AdvReac Intermediate Dizziness Verified 11/14/21 10:30 [From Jardiance] lisinopril AdvReac Intermediate COUGH Verified 11/14/21 10:30 NSAIDS (Non-Steroidal AdvReac Mild NEED Verified 11/14/21 10:30 Anti-Inflamma STOMACH PROTECTION WITH NSAIDS HAD GASTRIC BYPASS Home Medications Medication Instructions Recorded Confirmed Type multivitamin (Multiple Vitamins) 1 tab PO QAM 11/16/18 11/14/21 History Dexcom G6 Sensor (blood-glucose #9 ea NS 08/23/20 11/14/21 Rx sensor) Dexcom G6 Transmitter #1 ea NS 08/23/20 11/14/21 Rx (blood-glucose transmitter) pen needle, diabetic 32 gauge x #100 ea 08/26/20 11/14/21 Rx 1/4" (Novofine 32) gabapentin 300 mg capsule 300 mg PO HS 11/07/20 11/14/21 History iron infusion 1 dose IV DIRECTED PRN 12/10/20 11/14/21 History paroxetine HCl 30 mg tablet 30 mg PO QAM #30 tab 12/30/20 11/14/21 Rx metformin 850 mg tablet 850 mg PO BID #180 tab 05/05/21 11/14/21 Rx dulaglutide 1.5 mg/0.5 mL 1.5 mg SUBCUT WEEKLY #2 ml 09/22/21 11/14/21 Rx [facility] meloxicam 15 mg tablet 15 mg PO QPM #90 tab 09/24/21 11/14/21 Rx omeprazole 20 mg capsule,delayed 20 mg PO BID 11/14/21 11/14/21 History release triamcinolone acetonide 0.1 % 1 applic TOP BID PRN 11/14/21 11/14/21 History topical cream Past Med/Surg History Medical History Abdominal mass Anemia Anxiety with depression B-cell lymphoma treated with chemotherapy, follow up PET Scan 10/2020. DM2 (diabetes mellitus, type 2) NIDDM Iron deficiency anemia Lymphoma Osteoarthritis Sleep apnea no device since losing weight Syncope Per patient she takes paxil for this---follows with Dr. Enrico Jurado in [place], [place]. Surgical History H/O abdominal surgery (06/11/20) Diagnostic Laparoscopy, Biopsy Abdominal Wall Mass, Partial Omentectomy Dr. Mac 06/11/20 History of colonoscopy History of dental surgery dental implant History of esophagogastroduodenoscopy (EGD) History of Jalen-en-Y gastric bypass (~2009) History of tonsillectomy History of total left knee replacement (TKR) (~2012) History of total right knee replacement (TKR) (~2012) History of wisdom tooth extraction Port-A-Cath in place (06/11/20) Insertion of Mediport Left Subclavian Dr. Mac 06/11/20 Family History Grandmother Lung cancer Mother Diabetes Father No problems noted. Family/Other Substance abuse Family/Other Substance abuse Mental health disorder Family/Other Substance abuse Family/Other Substance abuse Grandmother (Maternal) Diabetes Colorectal cancer Grandfather (Maternal) Lung cancer Smoker Stroke Grandmother (Paternal) No problems noted. Grandfather (Paternal) No problems noted. Family/Other Diabetes Multiple sclerosis Aunt Diabetes Other Alcoholic Breast cancer Heart disease Parkinsons Prostate cancer Denies family history of Ovarian cancer No family history of adverse response to anesthesia Myocardial infarction Social History Smoking Status: Never smoker Second Hand Exposure: No; Hx Alcohol Use: No Hx Substance Use: No Preferred Language: Ugandan Communication Ability: Effective Visual Impairment: No Limitations Hearing Ability: Normal Server Required: No Beliefs That Will Affect Care: None marital status: Current Living Situation: Spouse current occupational status: employed current occupation: [employer] Feels Safe at Home: Yes Childhood Exposure to Second-Hand Smoke: No Diet Comment: low sugar during the past year weight has: increased > 10 lbs Dental Care, Regularly: Yes Physical Activity Frequency: 1-2 Times per Week Seatbelt Use: always Sunscreen Use: Yes Assistive Devices: Glasses Review of Systems Review of Systems: All systems reviewed & are unremarkable except as noted in HPI & below Physical Exam Constitutional: WD/WN, vitals as above Eyes: + conjunctival abnormality (pallor) ENMT: external ear and nose normal, oropharynx normal Neck: trachea midline, no thyromegaly Respiratory: normal respiratory effort, lungs clear to auscultation Cardiovascular: RRR, no murmur, no edema Extremities: + abnormal capillary refill (5s peripherally, 2s centrally) and no calf tenderness Gastrointestinal (Abdomen): normal bowel sounds, soft, nontender, no hepatosplenomegaly Skin: no rashes, warm and dry + pallor (generalized) Neurologic: moves all extremities and awake; not confused Psychiatric: A+Ox3, euthymic affect Results & Data Results & Data ([facility]) Vital Signs (Past 12 Hours) Vital Signs Temp Pulse Resp BP Pulse Ox 11/14/21 11:45 79 20 95 11/14/21 11:20 36.3 C L 82 18 111/71 98 Laboratory Results Abnormal lab results 11/14/21 11/14/21 11/14/21 Range/Units 11:35 11:35 11:35 WBC 4.43 L (4.8-10.8) K/uL RBC 2.24 L (4.2-5.4) M/uL Hgb 6.9 L* (12.0-16.0) g/dL Hct 20.8 L* (37-47) % RDW Std Deviation 46.6 H (36.4-46.3) fL RDW Coeff of Giorgio 14.6 H (11.5-14.5) % Lymph # (Auto) 0.79 L (1.2-3.4) K/uL Immature Gran # (Auto) 0.03 H (0.00-0.02) K/uL Absolute Nucleated RBC 0.05 H (0-0) K/uL APTT 55.2 H* (21.0-31.0) Seconds Creatinine 0.59 L (0.6-1.2) mg/dl BUN/Creatinine Ratio 30.5 H (10-20) Glucose 127 H (70-99(Fasting)) mg/dl Total Protein 5.8 L (6.0-8.3) gm/dl Globulin 2.1 L (2.5-4.0) gm/dl Crossmatch 11/14/21 Range/Units 11:45 WBC (4.8-10.8) K/uL RBC (4.2-5.4) M/uL Hgb (12.0-16.0) g/dL Hct (37-47) % RDW Std Deviation (36.4-46.3) fL RDW Coeff of Giorgio (11.5-14.5) % Lymph # (Auto) (1.2-3.4) K/uL Immature Gran # (Auto) (0.00-0.02) K/uL Absolute Nucleated RBC (0-0) K/uL APTT (21.0-31.0) Seconds Creatinine (0.6-1.2) mg/dl BUN/Creatinine Ratio (10-20) Glucose (70-99(Fasting)) mg/dl Total Protein (6.0-8.3) gm/dl Globulin (2.5-4.0) gm/dl Crossmatch See Detail Diagnostic Findings None Medications Administered ER Medications Given: NSS 1L bolus Ondansetron 4mg IV Pantoprazole 80mg bolus and drip ECG Indication: other Rate (beats per minute): 76 Rhythm: normal sinus Comparison ECG Date: from (Jun 24, 2020) Change: no significant change Code Status & VTE Plan Code Status Full VTE Prophylaxis Plan VTE Prophylaxis will be ordered: Yes Reason for no VTE drug order: Contraindicated PG Care Time/CCT Total # of Minutes Spent Total Time Spent with Patient: Total time spent is greater than 50% in coordination of care (as documented) at patient's floor/unit and/or counseling patient: Coding Level of Care Code 24862 Initial Inpt Care Lvl 3 Diagnoses Iron deficiency anemia D50.8 Iron deficiency anemia type: other iron deficiency H/O gastric bypass Z98.84 DM2 (diabetes mellitus, type 2) E11.9 Diabetes mellitus complication status: without complication Diabetes mellitus moth exterminator insulin use: without moth exterminator use B-cell lymphoma C85.10 B-cell lymphoma type: unspecified B-cell Lymphoma site: unspecified region Acute blood loss anemia D62 Acute GI bleeding K92.2 (1) DM2 (diabetes mellitus, type 2) Diabetes mellitus complication status: without complication Diabetes mellitus moth exterminator insulin use: without moth exterminator use Qualified Code(s): E11.9 - Type 2 diabetes mellitus without complications (2) B-cell lymphoma B-cell lymphoma type: unspecified B-cell Lymphoma site: unspecified region Qualified Code(s): C85.10 - Unspecified B-cell lymphoma, unspecified site (3) Iron deficiency anemia Iron deficiency anemia type: other iron deficiency Qualified Code(s): D50.8 - Other iron deficiency anemias
[2021-11-14] MEDS: PANTOprazole 40 MG in DEXTROSE 5% 100 ML IV SCH ×2 (13:40→18:30)
--- NOTE | 2021-11-14 14:13 | XRay Report ---
XR chest 1V portable CLINICAL HISTORY: SOB, fatigue TECHNIQUE: Single frontal radiograph of the chest was obtained. Comparison: Comparison is made to chest radiograph 06/27/2020 FINDINGS: Lines and tubes are stable. The cardiomediastinal silhouette is normal. Lungs are underinflated but c lear. No evidence of pleural effusion or pneumothorax. IMPRESSION: No acute chest disease. ACT 112: Negative or not required by law. Electronically signed by: Adolfo Crane M.D. 11/14/2021 2:12 PM
[2021-11-14 14:19] LABS: Reticulocyte % 7.1 % (0.5-2.0); Reticulocytes # 0.16 10^6/uL (0.02-0.10)
[2021-11-14 14:39] LABS: Ferritin 12.9 ng/ml (8-388)
[2021-11-14 14:41] LABS: Folate (Folic Acid) 13.34 ng/ml (>5.38)
[2021-11-14] MEDS ORDERED: OPTIRAY 320 100ml IV ONE (16:18)
--- NOTE | 2021-11-14 16:51 | Consultation Report ---
GASTROENTEROLOGY CONSULTATION DATE OF CONSULTATION: 11/14/2021. SEX: Female. RACE: . ATTENDING PHYSICIAN: Dr. Schuyler Askew. CONSULTING PHYSICIAN: Kehinde Thomson DO. REASON FOR CONSULTATION: Iron deficiency anemia, acute blood loss anemia, melena. HISTORY OF PRESENT ILLNESS: The patient is a 51-year-old female with a significant past me dical history of iron deficiency anemia, status post workup including EGD, colonoscopy and capsule en doscopy with no findings per [facility] here in [place]. She does also have a history of gastric bypass and a history of diffuse large B cell lymphoma, for which she received R-C HOP therapy. She presented to the Department of Emergency Medicine after experiencing 4 days of sariah k stools. She admits to taking some [address] medication over the past few weeks at night, w hich does contain aspirin and she does take meloxicam daily for osteoarthritis. She is on twice madan y omeprazole therapy and denies any increased symptoms of GERD or heartburn. Upon arrival to the Dep artment of Emergency Medicine, she was complaining of lightheadedness and dizziness and her initial h emoglobin was noted to be 6.9. Her blood pressure initially in the ER was 100/70 with a pulse in the 70s as well. She received a fluid bolus with normal saline and 2 units of packed red blood cells wer e ordered. The time that I saw the patient, she had just started receiving the first unit of packed r ed blood cells. She also was receiving a Protonix drip at 8 mg per hour. She did feel that her ligh theadedness that had improved and her dizziness had improved. She denied any abdominal pain. Her la st EGD was performed on 11/12/[address] Harman and was noted to show evidence of a gastric bypass w ith no abnormalities. Colonoscopy was performed on 11/12/2021 as well and showed diverticulosis in t he sigmoid colon. There were no other findings. She has received iron infusion therapies in the pas t and did undergo capsule endoscopy, though I do not have the records. The patient tells me that it was normal. She denies any other complaints including fevers, chills, nausea, vomiting, hematemesis, hematochezia, jaundice, acholic stools, dark urine, pruritus or other complaints. PAST MEDICAL HISTORY: Significant for dyslipidemia, vitamin B12 deficiency, obesity, iron deficiency anemia, arthritis, anxiety with depression, type 2 diabetes, large B cell lymphoma, history of COVID infection as well as abdominal mass, syncope. PAST SURGICAL HISTORY: Jalen-en-Y gastric bypass, bilateral total knee replacements, third molar extr action, laparoscopy with biopsy of omental mass. ALLERGIES: SULFA, OXYCODONE, BUPROPION, JARDIANCE, LISINOPRIL, NSAIDS. MEDICATIONS: At present, Protonix 8 mg per hour. Her home medications include gabapentin 300 mg p.o. at bedtime, Meloxicam 15 mg p.o. q.p.m., metformi n 850 mg p.o. b.i.d., multivitamin 1 tablet daily, omeprazole 20 mg p.o. b.i.d., paroxetine 30 mg p.o . q.a.m., thiamine 100 mg daily, triamcinolone cream as directed. SOCIAL HISTORY: She is and lives with her spouse. Denies any tobacco or illicit drug use. She does have an occasional alcoholic beverage. FAMILY HISTORY: Negative for GI malignancy or inflammatory bowel disease. REVIEW OF SYSTEMS: Negative x12 systems review other than pertinent positives listed in the HPI. PHYSICAL EXAMINATION: VITAL SIGNS: Temperature 36.9, pulse 73, respirations 20, blood pressure 107/69, pulse ox 98% on isrrael m air. GENERAL: She is awake and cooperative, noted pallor. No acute distress. HEENT: Head normocephalic, atraumatic. EYES: Pupils equal, round. Extraocular muscles are intact. Sclerae are nonicteric. ENT: External evaluation of ears and nose are normal. Oropharynx is clear. NECK: Soft, supple. CHEST: Clear to auscultation bilaterally. CARDIOVASCULAR: Regular rate and rhythm. ABDOMEN: Soft, nontender, nondistended, positive bowel sounds. There is no appreciable hepatospleno megaly. EXTREMITIES: No clubbing, cyanosis or edema. LABORATORY STUDIES: From today showed white blood cell count of 4.43, hemoglobin 6.9, hematocrit 20. 8, platelet count of 225, a PT of 10.5, PTT 55.2. INR of 1.0, sodium 137, potassium 4.2, chloride 10 5, bicarbonate 24, BUN 18, creatinine 0.59. Blood glucose 127, calcium 8.8. Iron 55, TIBC 387. Joby ritin 12.9, AST 15, ALT 12, alkaline phosphatase 66, total bilirubin 0.3. Troponin less than 2.3, to eduarda protein 5.8, albumin 3.7. Vitamin B12 and folate levels are pending. ASSESSMENT: A 51-year-old female with a history of large B cell lymphoma, history of iron deficiency anemia, history of Jalen-en-Y gastric bypass who presents with acute blood loss anemia and melena. PLAN: I discussed this patient in detail with Dr. Bonds of anesthesia. He would like the pat ient to receive 2 units of packed red blood cells prior to any intervention endoscopically. The rogelio ent will remain on a Protonix drip at 8 mg per hour. The patient will receive 2 units packed red blo od cells in transfusion and she will undergo an upper endoscopy at some point during this hospitaliza tion. I will follow her clinical course and make further recommendations as needed. Once again, thanks for allowing me to participate in the care of this patient. If you have any furth er questions, please do not hesitate in contacting me. Job ID: [id number]
[2021-11-14] MEDS ORDERED: DEXTROSE 50% 50 ML SYRINGE IV PRN (16:54)
[2021-11-14] MEDS ORDERED: CARBOHYDRATES FOR HYPOGLYCEMIA PO PRN (16:54)
[2021-11-14] MEDS ORDERED: GLUCOSE 40% GEL 15 GM TUBE PO PRN (16:54)
[2021-11-14] MEDS ORDERED: ACETAMINOPHEN 325 MG TAB PO PRN (16:54)
[2021-11-14] MEDS ORDERED: ONDANSETRON INJ 2 MG/ML 2 ML VIAL IV PRN ×2 (16:54→17:55)
[2021-11-14] MEDS ORDERED: GLUCAGON FOR INJ 1 MG VIAL SQ PRN (16:54)
[2021-11-14] MEDS ORDERED: GLUCOSE 10 TABS/TUBE PO PRN (16:54)
--- NOTE | 2021-11-14 16:59 | CT Scan Report ---
CT abd pelvis IV con only CLINICAL HISTORY: Blood loss anemia, umbilical pain TECHNIQUE: Helical axial images of the abdomen and pelvis were obtained and displayed. Automated dose lowering techniques and/or adjustment according to patient size were utilized for this exam. This e xam was performed with intravenous contrast. CT DOSE: 964.44 mGy.cm COMPARISON: Comparison is made to CT abdomen pelvis 04/14/2021 FINDINGS: Lower chest: No acute abnormality Liver: Unremarkable. No focal lesions are seen. Gallbladder and biliary tree: Cholelithiasis is seen without evidence of cholecystitis. No intra- or extrahepatic biliary ductal dilation. Pancreas: Fatty replacement of the pancreas is seen. Spleen: Unremarkable. Adrenals: Unremarkable. Kidneys and ureters: Unremarkable. Bladder: Unremarkable. Reproductive organs: Stable mild prominence of the ovaries. Bowel: Unremarkable appearance of the bowel. The appendix is normal. Patient is status post gastric b ypass surgery. Diverticulosis is seen without evidence of diverticulitis. There is persistent tetheri ng of loops in the region of the jejunojejunostomy site, however no evidence of bowel obstruction is seen. Lymph nodes Retroperitoneal: Unremarkable. Mesenteric: Redemonstration of fat stranding and soft tissue densities in the peritoneum compatible w ith history of treated non-Hodgkin's lymphoma. Evolutionary changes are seen from prior exam however there is no definite evidence of worsening disease. Pelvic: Unremarkable. Peritoneum: Fat stranding is seen in the peritoneum. Vessels: Unremarkable. Abdominal wall: There is a fat-containing umbilical hernia with a small amount of fat stranding, this is similar in appearance to prior exam. Bones: Degenerative changes in the visualized spine. IMPRESSION: 1. No acute abnormality is seen. There is an umbilical hernia containing fat which is similar in lamar earance to prior exam, however ischemic changes in the fat cannot be entirely excluded. 2. Redemonstration of fat stranding and omental lesions which likely favor posttreatment changes of non-Hodgkin's lymphoma. Overall the burden of disease is similar in appearance to prior exam. 3. Cholelithiasis without evidence of cholecystitis. 4. Stable mild prominence of the ovaries. ACT 112: Negative or not required by law. Electronically signed by: Adolfo Crane M.D. 11/14/2021 4:58 PM
[2021-11-14] MEDS: INSULIN ASPART PER UNIT SC SCH ×2 (17:06→21:32)
[2021-11-14 17:48] LABS: Pregnancy Test, Serum Negative (Negative)
--- NOTE | 2021-11-14 17:52 | Anesthesiology Consultation ---
Date of Service November 14, 2021 Assessment & Plan (1) Encounter for pre-operative examination: Chart Review Chart Review: Acceptable Risk for Surgery patient received 1 unit prbc's after hb 6.9 History Surgery Operation Date: 11/14/21 09:10 Proposed Procedures p Esophagogastroduodenoscopy - Kehinde G. Case, DO Height/Weight Height: 5 ft 4 in Weight: 89 kg Allergies Allergy/AdvReac Type Severity Reaction Status Date / Time Sulfa (Sulfonamide Allergy Intermediate Hives Verified 11/14/21 10:30 Antibiotics) oxycodone Allergy Mild ITCHINESS Verified 11/14/21 10:30 bupropion AdvReac Intermediate Dizziness Verified 11/14/21 10:30 empagliflozin AdvReac Intermediate Dizziness Verified 11/14/21 10:30 [From Jardiance] lisinopril AdvReac Intermediate COUGH Verified 11/14/21 10:30 NSAIDS (Non-Steroidal AdvReac Mild NEED Verified 11/14/21 10:30 Anti-Inflamma STOMACH PROTECTION WITH NSAIDS HAD GASTRIC BYPASS Medications Home Medications Medication Instructions Recorded Confirmed Last Taken multivitamin (Multiple Vitamins) 1 tab PO QAM 11/16/18 11/14/21 11/14/21 07:00 Dexcom G6 Sensor (blood-glucose #9 ea NS 08/23/20 11/14/21 Unknown sensor) Dexcom G6 Transmitter #1 ea NS 08/23/20 11/14/21 Unknown (blood-glucose transmitter) pen needle, diabetic 32 gauge x #100 ea 08/26/20 11/14/21 Unknown 1/4" (Novofine 32) gabapentin 300 mg capsule 300 mg PO HS 11/07/20 11/14/21 11/10/20 20:00 iron infusion 1 dose IV DIRECTED PRN 12/10/20 11/14/21 Unknown paroxetine HCl 30 mg tablet 30 mg PO QAM #30 tab 12/30/20 11/14/21 11/14/21 07:00 metformin 850 mg tablet 850 mg PO BID #180 tab 05/05/21 11/14/21 11/14/21 07:00 dulaglutide 1.5 mg/0.5 mL 1.5 mg SUBCUT WEEKLY #2 ml 09/22/21 11/14/21 Unknown subcutaneous pen injector ([facility]) meloxicam 15 mg tablet 15 mg PO QPM #90 tab 09/24/21 11/14/21 Unknown omeprazole 20 mg capsule,delayed 20 mg PO BID 11/14/21 11/14/21 11/14/21 07:00 release triamcinolone acetonide 0.1 % 1 applic TOP BID PRN 11/14/21 11/14/21 Unknown topical cream Active Medications Generic Name Dose Route Start Last Admin Trade Name Isaiah PRN Reason Stop Dose Admin Pantoprazole Sodium 40 mg/ 100 mls @ 20 mls/hr 11/14/21 12:45 11/14/21 13:40 Dextrose IV 12/14/21 12:44 8 mg/hr Q5H HARSHLI 20 mls/hr Administration 8 MG/HR Insulin Aspart 0 units 11/14/21 16:54 11/14/21 17:06 Insulin Aspart Per Unit SC 12/14/21 16:53 Not Given ACHS HARSHIL NPO Date Last Intake of Fluids: 11/14/21 Time Last Intake of Fluids: 11:30 Last Intake of Fluids Comment: water Date Last Intake of Solids: 11/14/21 Time Last Intake of Solids: 09:30 Last Intake of Solids Comment: joann fields Past Medical History Medical History Abdominal mass Anemia Anxiety with depression B-cell lymphoma treated with chemotherapy, follow up PET Scan 10/2020. DM2 (diabetes mellitus, type 2) NIDDM Iron deficiency anemia Lymphoma Osteoarthritis Sleep apnea no device since losing weight Syncope Per patient she takes paxil for this---follows with Dr. Enrico Jurado in [place], [place]. Exercise / Class Metabolic Activity II 4-5 Yardwork/Stairs/Walk up hill Past Family History Family History Grandmother Lung cancer Mother Diabetes Father No problems noted. Family/Other Substance abuse Family/Other Substance abuse Mental health disorder Family/Other Substance abuse Family/Other Substance abuse Grandmother (Maternal) Diabetes Colorectal cancer Grandfather (Maternal) Lung cancer Smoker Stroke Grandmother (Paternal) No problems noted. Grandfather (Paternal) No problems noted. Family/Other Diabetes Multiple sclerosis Aunt Diabetes Other Alcoholic Breast cancer Heart disease Parkinsons Prostate cancer Denies family history of Ovarian cancer No family history of adverse response to anesthesia Myocardial infarction Past Surgical History Surgical History H/O abdominal surgery (06/11/20) Diagnostic Laparoscopy, Biopsy Abdominal Wall Mass, Partial Omentectomy Dr. Mac 06/11/20 History of colonoscopy History of dental surgery dental implant History of esophagogastroduodenoscopy (EGD) History of Jalen-en-Y gastric bypass (~2009) History of tonsillectomy History of total left knee replacement (TKR) (~2012) History of total right knee replacement (TKR) (~2012) History of wisdom tooth extraction Port-A-Cath in place (06/11/20) Insertion of Mediport Left Subclavian Dr. Mac 06/11/20 Social History Smoking Status: Never smoker Hx Alcohol Use: No Alcohol type: other alcohol intake frequency: holidays/special occasions only Hx Substance Use: No substance use type: does not use Physical Exam Vital Signs Last Vital Signs Temp 36.6 C 11/14/21 17:21 Pulse 73 11/14/21 17:21 Resp 16 11/14/21 17:21 BP 126/73 11/14/21 17:21 Pulse Ox 96 11/14/21 17:21 Testing Laboratory Results 11/14/21 11:35 11/14/21 11:35 PT 10.5 Seconds (9.0-12.0) 11/14/21 11:35 INR 1.0 (0.9-1.1) 11/14/21 11:35 APTT 55.2 Seconds (21.0-31.0) H* 11/14/21 11:35 Blood Type A Positive 11/14/21 11:45 Antibody Screen NEGATIVE 11/14/21 11:45 11/14/21 16:44 POC Glucose 132 H
[2021-11-14] MEDS ORDERED: fentaNYL citrate 100 MCG/2 ML VIAL IV PRN (17:55)
[2021-11-14] MEDS ORDERED: ATROPINE SULFATE 0.1 MG/ML 10ML SYR IV PRN (17:55)
[2021-11-14] MEDS ORDERED: PROPOFOL IV EMULSION 10 MG/ML 20 ML VIAL IV ONE (19:21)
[2021-11-14] MEDS ORDERED: LIDOCAINE 2% 2 ML VIAL/AMP(20MG/ML) INFIL ONE (19:21)
--- NOTE | 2021-11-14 19:51 | GI REPORT ---
Patient Name: Harleen Schumacher Procedure Date: 11/14/2021 7:27 PM Date of : 1970 Admit Type: Inpatient Age: 51 Gender: Female Attending MD: Kehinde Thomson DO Procedure: Upper GI endoscopy Providers: Kehinde Thomson DO Referring MD: Usha Rider Md Indications: Acute post hemorrhagic anemia, Melena Medicines: Monitored Anesthesia Care Complications: No immediate complications. Estimated Blood Loss: Estimated blood loss: none. Procedure: Pre-Anesthesia Assessment: - Prior to the procedure, a History and Physical was performed, and patient medications and allergies were reviewed. The patient's tolerance of previous anesthesia was also reviewed. The risks and benefits of the procedure and the sedation options and risks were discussed with the patient. All questions were answered, and informed consent was obtained. Prior Anticoagulants: The patient has taken no previous anticoagulant or antiplatelet agents. ASA Grade Assessment: III - A patient with severe systemic disease. After reviewing the risks and benefits, the patient was deemed in satisfactory condition to undergo the procedure. After obtaining informed consent, the endoscope was passed under direct vision. Throughout the procedure, the patient's blood pressure, pulse, and oxygen saturations were monitored continuously. The Endoscope was introduced through the mouth, and advanced to the jejunum. The upper GI endoscopy was accomplished without difficulty. The patient tolerated the procedure well. Findings: The esophagus and examined esophagus were normal. 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 The gastrojejunal anastomosis was characterized by healthy appearing mucosa. This was traversed. The [id number] limb was characterized by healthy appearing mucosa. The examined jejunum was normal. Impression: - Normal esophagus with Z-line 36 cm from incisors. - Jalen-en-Y gastrojejunostomy with gastrojejunal anastomosis characterized by healthy appearing mucosa. - Normal examined jejunum. - No specimens collected. Recommendation: - [facility]. - Clear liquid diet. - Use Protonix (pantoprazole) 40 mg PO BID. - Perform CT angio of the abdomen if patient has any further evidence of GI bleeding. Kehinde Thomson DO 11/14/2021 7:51:04 PM This report has been signed electronically. Note Initiated On: 11/14/2021 7:27 PM Number of Addenda: 0 I attest to the content of the Intraoperative Record and orders documented therein, exceptions below {[id number]}
--- NOTE | 2021-11-14 19:57 | Anesthesiology Progress Note ---
Date of Service November 14, 2021 Anesthesia Post Procedure Vital Signs Vital Signs: Temp Pulse Pulse Pulse Resp BP BP 11/14/21 19:51 36.0 C L 83 14 96/66 L 11/14/21 17:21 36.6 C 73 16 126/73 11/14/21 17:07 72 11/14/21 16:38 36.5 C 77 20 106/70 11/14/21 16:08 36.8 C 91 H 20 125/67 11/14/21 16:00 95 H 20 109/67 11/14/21 15:02 71 20 104/64 11/14/21 14:45 69 17 113/67 11/14/21 14:32 36.9 C 73 20 107/69 11/14/21 14:30 74 21 107/69 11/14/21 14:17 36.8 C 77 20 108/66 11/14/21 14:15 73 18 108/66 11/14/21 14:00 73 19 105/66 11/14/21 13:57 36.8 C 75 22 109/64 11/14/21 13:30 72 18 107/66 11/14/21 13:02 78 23 116/67 11/14/21 12:30 75 16 105/65 11/14/21 12:00 77 18 115/69 11/14/21 11:45 79 20 11/14/21 11:20 36.3 C L 82 18 111/71 Pulse Ox 11/14/21 19:51 95 11/14/21 17:21 96 11/14/21 17:07 11/14/21 16:38 98 11/14/21 16:08 98 11/14/21 16:00 97 11/14/21 15:02 98 11/14/21 14:45 99 11/14/21 14:32 98 11/14/21 14:30 98 11/14/21 14:17 98 11/14/21 14:15 98 11/14/21 14:00 99 11/14/21 13:57 97 11/14/21 13:30 98 11/14/21 13:02 99 11/14/21 12:30 96 11/14/21 12:00 96 11/14/21 11:45 95 11/14/21 11:20 98 Transfer of Care Handoff Completed per policy Notes Mental Status: alert / awake / arousable Patient Amnestic to Procedure: Yes Nausea / Vomiting: adequately controlled Pain: adequately controlled Airway Patency, RR, SpO2: stable & adequate BP & HR: stable & adequate Hydration State: stable & adequate Anesthetic Complications: no major complications apparent
[2021-11-14] MEDS: CYANOCOBALAMIN 1000 MCG/ML VIAL IM SCH (21:24)
[2021-11-14] MEDS: GABAPENTIN 300 MG CAP PO SCH (21:24)
[2021-11-14] MEDS: PANTOprazole 40 MG TAB PO SCH ×2 (21:24→21:33)
[2021-11-15 02:27] LABS: Basophils # (auto) 0.01 K/uL (0-0.2); Basophils % (auto) 0.3 %; Eosinophils # (auto) 0.05 K/uL (0-0.5); Eosinophils % (auto) 1.4 %; Hematocrit (blood only) 25.6 % (37-47); Hemoglobin 8.7 g/dL (12.0-16.0); Immature Granulocytes # (auto) 0.02 K/uL (0.00-0.02); Immature Granulocytes % (auto) 0.6 %; Lymphocytes # (auto) 0.58 K/uL (1.2-3.4); Lymphocytes % (auto) 16.6 %; Mean Corpuscular Hemoglobin 30.1 pg (25-34); Mean Corpuscular Volume 88.6 fL (80-100); Mean Platelet Volume 8.8 fL (7.4-10.4); Monocytes # (auto) 0.31 K/uL (0.11-0.59); Monocytes % (auto) 8.9 %; Neutrophils # (auto) 2.52 K/uL (1.4-6.5); Neutrophils % (auto) 72.2 %; Nucleated RBC # (auto) 0.05 K/uL (0-0); Nucleated RBC % (auto) 1.4 %; Platelet Count 178 K/uL (130-400); RDW Coefficient of Variation 17.1 % (11.5-14.5); RDW Standard Deviation 53.9 fL (36.4-46.3); Red Blood Count 2.89 M/uL (4.2-5.4); White Blood Count 3.49 K/uL (4.8-10.8)
[2021-11-15 02:50] LABS: BUN Creatinine Ratio 26.9 (10-20); Calcium 8.6 mg/dl (8.5-10.1); Creatinine Clr Calc Pharmacy 135.1 ml/min; Est GFR (African American) 126.4 ml/min; Est GFR (Non-African American) 109.1 ml/min; Potassium 3.7 mmol/L (3.5-5.1)
[2021-11-15] MEDS: CYANOCOBALAMIN 1000 MCG/ML VIAL IM SCH (07:42)
[2021-11-15] MEDS: PANTOprazole 40 MG TAB PO SCH ×2 (07:42→20:38)
[2021-11-15] MEDS: PARoxetine HCL 10 MG TAB PO SCH (07:42)
[2021-11-15] MEDS: INSULIN ASPART PER UNIT SC SCH ×4 (08:09→20:50)
[2021-11-15] MEDS: HEPARIN 100 UNIT/ML 5ML FLUSH FLUSH PRN (11:02)
--- NOTE | 2021-11-15 11:03 | Gastroenterology Progress Note ---
Date of Service November 15, 2021 Assessment & Plan (1) Symptomatic anemia: Plan: Underwent EGD yesterday with DR. Thomson, no abnormal findings. No signs of ongoing GI bleeding Ok to advance diet PPI orally at BID Follow symptoms, if remains stable and no signs of bleeding and tolerating diet, can f/u with [facility], Patients primary GI team, and discuss Colonoscopy timing and capsule if necessary. Similar presenation and given post gastric bypass anatomy, likely needs chronic oral or iv iron. Call with questions Admission and Anticipated Discharge Date Admission Date: November 14, 2021 Subjective Doing well without complaints, no signs of GI bleeding On phone. Physical Exam Constitutional: WD/WN, vitals as above Eyes: + conjunctival abnormality (pallor) ENMT: external ear and nose normal, oropharynx normal Neck: trachea midline, no thyromegaly Respiratory: normal respiratory effort, lungs clear to auscultation Cardiovascular: RRR, no murmur, no edema Extremities: + abnormal capillary refill (5s peripherally, 2s centrally) and no calf tenderness Gastrointestinal (Abdomen): normal bowel sounds, soft, nontender, no hepatosplenomegaly Skin: no rashes, warm and dry + pallor (generalized) Neurologic: moves all extremities and awake; not confused Psychiatric: A+Ox3, euthymic affect Results & Data ([facility]) Vital Signs (Past 12 Hours) Vital Signs Temp Pulse Pulse Resp BP BP Pulse Ox 11/15/21 08:00 63 11/15/21 07:15 36.4 C L 72 20 107/64 97 11/15/21 00:52 36.7 C 69 14 116/81 94
[2021-11-15 15:59] LABS: Hematocrit (blood only) 26.5 % (37-47); Hemoglobin 8.9 g/dL (12.0-16.0)
[2021-11-15] MEDS: GABAPENTIN 300 MG CAP PO SCH (20:38)
--- NOTE | 2021-11-15 21:41 | Hospitalist Progress Note ---
Date of Service November 15, 2021 Assessment & Plan (1) Acute blood loss anemia: Plan: Low blood pressure, melena and dizziness in a 51 yo female with history of gastric bypass and diffuse large B-cell lymphoma s/p R-CHOP completed 10/2020 Patient admitted to PCU On day of admission was placed on: IV pantoprazole 80mg bolus and IV drip 2 units packed RBCs transfused on 11/14 Patient had EGD: Normal appearing mucosa in esophagus, stomach and duodenum. Tolerated clear liquid diet overnight, will advance to low fiber diet on 11/15 Hemoglonbin is 8,7 in AM, recheck 8.9 Will recheck blood work in AM PTT notably increased, would repeat with reflex mixing study if remains elevated once stable Likely discharge on 11/16 (2) Acute GI bleeding: Plan: As above (3) Iron deficiency anemia: Plan: Of note she has history of iron deficiency anemia last year receiving Feraheme through hematology. EGD and colonoscopy 10/2020 for iron def. workup - no GI bleeding at that time. Transferrin saturation currently 14%, ferritin 12.9 ng/ml. B12 level 90 - start cyanocobalamin 1000 mcg IM x3 days (4) H/O gastric bypass: (5) DM2 (diabetes mellitus, type 2): Plan: HbA1C 7.9 (although notably this was in the setting of acute GI bleed with hindsight). Hold metformin Novolog sliding scale for correction only initially 45 mg/dL/unit (6) B-cell lymphoma: Plan: CT A/P to assess for recurrent lymphoma of GI tract: Overall the burden of disease is similar in appearance to prior exam. Plan: VTE Prophylaxis - SCDs Diet - NPO except meds Disposition - admit to PCU Admission and Anticipated Discharge Date Admission Date: November 14, 2021 Subjective 51 yo femlae reports no new signs of bleeding. Patient has felt well today. She is agreeable to advancing her diet. Review of Systems Review of Systems: All systems reviewed & are unremarkable except as noted in HPI & below Physical Exam Physical Exam: Constitutional: WD/WN, vitals as above Eyes: PERRLA, EOMI ENMT: external ear and nose normal, oropharynx normal Neck: trachea midline, no thyromegaly Respiratory: normal respiratory effort, lungs clear to auscultation Cardiovascular: RRR, no murmur, no edema Extremities: no calf tenderness Gastrointestinal (Abdomen): normal bowel sounds, soft, nontender, no hepatosplenomegaly Skin: no rashes, warm and dry Neurologic: moves all extremities and awake; not confused Psychiatric: A+Ox3, euthymic affect Results & Data Results & Data ([facility]) Vital Signs (Past 12 Hours) Vital Signs Temp Pulse Pulse Resp BP Pulse Ox 11/15/21 19:00 37.0 C 77 18 103/68 95 11/15/21 16:54 71 11/15/21 15:50 36.7 C 64 18 108/69 96 11/15/21 11:17 36.3 C L 68 19 98/62 L 97 PG Care Time/CCT Total # of Minutes Spent Total Time Spent with Patient: Total time spent is greater than 50% in coordination of care (as documented) at patient's floor/unit and/or counseling patient: Coding Level of Care Code 94771 Subseq Hosp Care Lvl 3 Diagnoses Acute blood loss anemia D62 Acute GI bleeding K92.2 Iron deficiency anemia D50.8 Iron deficiency anemia type: other iron deficiency H/O gastric bypass Z98.84 DM2 (diabetes mellitus, type 2) E11.9 Diabetes mellitus complication status: without complication Diabetes mellitus penitentiary insulin use: without penitentiary use B-cell lymphoma C85.10 B-cell lymphoma type: unspecified B-cell Lymphoma site: unspecified region (1) DM2 (diabetes mellitus, type 2) Diabetes mellitus complication status: without complication Diabetes mellitus penitentiary insulin use: without penitentiary use Qualified Code(s): E11.9 - Type 2 diabetes mellitus without complications (2) B-cell lymphoma B-cell lymphoma type: unspecified B-cell Lymphoma site: unspecified region Qualified Code(s): C85.10 - Unspecified B-cell lymphoma, unspecified site (3) Iron deficiency anemia Iron deficiency anemia type: other iron deficiency Qualified Code(s): D50.8 - Other iron deficiency anemias
[2021-11-16 07:57] LABS: Hematocrit (blood only) 26.7 % (37-47); Hemoglobin 8.7 g/dL (12.0-16.0); Mean Corpuscular Hemoglobin 29.2 pg (25-34); Mean Corpuscular Hgb Conc 32.6 g/dL (32-36); Mean Corpuscular Volume 89.6 fL (80-100); Mean Platelet Volume 9.5 fL (7.4-10.4); Platelet Count 224 K/uL (130-400); RDW Coefficient of Variation 17.4 % (11.5-14.5); RDW Standard Deviation 53.5 fL (36.4-46.3); Red Blood Count 2.98 M/uL (4.2-5.4); White Blood Count 3.84 K/uL (4.8-10.8)
[2021-11-16 08:04] LABS: Partial Thromboplastin Ratio 2.9
[2021-11-16 08:12] LABS: BUN Creatinine Ratio 21.8 (10-20); Calcium 8.8 mg/dl (8.5-10.1); Creatinine Clr Calc Pharmacy 127.5 ml/min; Est GFR (African American) 124.1 ml/min; Est GFR (Non-African American) 107.1 ml/min; Potassium 3.9 mmol/L (3.5-5.1)
[2021-11-16 08:22] LABS: Partial Thromboplastin Time 79.7 Seconds (21.0-31.0)
[2021-11-16] MEDS: INSULIN ASPART PER UNIT SC SCH ×2 (08:25→11:43)
[2021-11-16] MEDS: CYANOCOBALAMIN 1000 MCG/ML VIAL IM SCH (08:30)
[2021-11-16] MEDS: PANTOprazole 40 MG TAB PO SCH (08:30)
[2021-11-16] MEDS: PARoxetine HCL 10 MG TAB PO SCH (08:30)
[2021-11-16] MEDS: HEPARIN 100 UNIT/ML 5ML FLUSH FLUSH PRN (09:57)
[2021-11-16 10:29] LABS: Partial Thromboplastin Ratio 0.9; Prothrombin Time 10.5 Seconds (9.0-12.0)
--- NOTE | 2021-11-16 11:40 | Discharge Summary ---
Date of Service November 16, 2021 Admission HPI Per Admitting Provider Harleen Schumacher is a 51 year old female with history of gastric bypass and diffuse large B-cell lymphoma s/p R-CHOP completed 10/2020 who presents to the ER with low blood pressure, melena and dizziness. Symptoms have been ongoing for the last 4 days but much worse the last 2. She was seen by her PCP today and blood pressure was 90/60 therefore she was sent to the ER for further workup. She takes meloxicam daily for osteoarthritis although this is not a new medication and no recent change in dose. She takes omeprazole 20mg PO BID for years and has been compliant with this. She does note mildly increased discomfort with her umbilical hernia but this has always reduced without difficulty. Colonoscopy and EGD 10/2020 as part of iron def. anemia workup - no GI bleeding/ulcers noted at that time with intact staple gastrojejunal anastomosis. In the ER BP initially 100/70, now 11/71 after 1L NSS bolus. Hemoglobin 6.9 from prior baseline 1 week previously 12.7. She was prescribed 2 units packed RBCs. PTT elevated to 55.2 however Platelets normal. Principal Diagnosis Acute blood loss anemia GI Bleeding Discharge Exam Constitutional WD/WN, vitals as above Eyes + anicteric sclerae ENMT external ear and nose normal, oropharynx normal Neck trachea midline, no thyromegaly Respiratory normal respiratory effort, lungs clear to auscultation Cardiovascular RRR, no murmur, no edema Chest (Breasts) Chest: normal inspection of chest Gastrointestinal (Abdomen) normal bowel sounds, soft, nontender, no hepatosplenomegaly Musculoskeletal Extremities: extremities normal to inspection; no cyanosis and no clubbing Skin no rashes, warm and dry Neurologic moves all extremities and awake; no focal motor deficits Psychiatric A+Ox3, euthymic affect Lymphatic no lymphedema Discharge Data Allergies Allergy/AdvReac Type Severity Reaction Status Date / Time Sulfa (Sulfonamide Allergy Intermediate Hives Verified 11/14/21 10:30 Antibiotics) oxycodone Allergy Mild ITCHINESS Verified 11/14/21 10:30 bupropion AdvReac Intermediate Dizziness Verified 11/14/21 10:30 empagliflozin AdvReac Intermediate Dizziness Verified 11/14/21 10:30 [From Jardiance] lisinopril AdvReac Intermediate COUGH Verified 11/14/21 10:30 NSAIDS (Non-Steroidal AdvReac Mild NEED Verified 11/14/21 10:30 Anti-Inflamma STOMACH PROTECTION WITH NSAIDS HAD GASTRIC BYPASS Consultations 11/14/21 13:07 ED Decision to Admit Stat 11/14/21 16:54 Consult Gastroenterology Routine Procedures Performed Operation Date: 11/14/21 09:10 Actual Procedures p Esophagogastroduodenoscopy(Not Applicable) - Kehinde NickEdgar Case, DO Ordered Studies 11/14/21 13:48 CT abd pelvis IV con only Stat Hospital Course (1) Acute blood loss anemia: Low blood pressure, melena and dizziness in a 51 yo female with history of gastric bypass and diffuse large B-cell lymphoma s/p R-CHOP completed 10/2020 Patient admitted to PCU On day of admission was placed on: IV pantoprazole 80mg bolus and IV drip 2 units packed RBCs transfused on 11/14 Patient had EGD: Normal appearing mucosa in esophagus, stomach and duodenum. Tolerated low fiber diet prior to discharge, no further melena except some formed dark stool x 1 which is likely leftover Hemoglobin stable at 8.7, BP normal PTT falsely elevated due to being drawn from port s/p heparin flush-repeat peripheral lab was normal PTT -advised outpt f/u with GI for capsule endoscopy -switch home prilosec to portonix bid -dc home meloxicam (2) Acute GI bleeding: As above (3) Iron deficiency anemia: Of note she has history of iron deficiency anemia last year receiving Feraheme through hematology. EGD and colonoscopy 10/2020 for iron def. workup - no GI bleeding at that time. Transferrin saturation currently 14%, ferritin 12.9 ng/ml. B12 level 90 - start cyanocobalamin 1000 mcg IM x3 days then switch to po B12 needs to get [facility] as she has not been able to get them through her GI doctor like she used to (4) H/O gastric bypass: (5) DM2 (diabetes mellitus, type 2): HbA1C 7.9 restart metformin on discharge (6) B-cell lymphoma: CT A/P to assess for recurrent lymphoma of GI tract: Overall the burden of disease is similar in appearance to prior exam. VTE Prophylaxis - SCDs Disposition - dc to home Total Time Total Time Spent Total Time Spent (In Minutes): 35 min Total Time Includes: Examination of the Patient, Discharge Planning, Medication Reconciliation and Communication With Other Providers (GI) Discharge Plan Discharge Items Patient Disposition: Home - Self-Care Reason For Visit: ACUTE BLOOD LOSS ANEMIA Discharge Diagnosis: Acute blood loss anemia, GI Bleed Condition on Discharge: Good Activity: As commented below Lifting: Gradually increase as tolerated Bathing: No limitations Exercise/Sports: Gradually increase as tolerated Weightbearing: Full weightbearing Non-emergency contact: Primary Care Provider, Parachute Marker and Oncologist Call non-emergency contact if: you have any medication questions and your symptoms worsen Follow-up/Referrals: Usha Rider MD [Primary Care Provider] - (Follow up as scheduled this week.) Diet: Low Fiber Addtl Attending Provider Instructions: Please continue on a low fiber diet x 1 week and then slowly advance back to your regular diet. Your omeprazole will be switched to pantoprazole twice a day to prevent further bleeding. It is not known from where you are bleeding-a capsule endoscopy will be helpful. Please follow up with your usual GI doctor within 1-2 weeks. Please have your PCP or your Oncologist check your CBC (complete blood count) in 1 week. You can ask Oncology to arrange for your IV iron infusions in the future. You should STOP taking meloxicam as this is an NSAID and can cause GI bleeding. Pending Studies at Discharge: No Stand-Alone Forms: My [facility] D[facility] 3d, Smoking Cessation Medications and DC Order Prescriptions: New acetaminophen 325 mg Tablet 650 mg PO Q4H PRN (Reason: pain) Qty: 30 RF: 0 pantoprazole 40 mg Tablet,Delayed Release (Dr/Ec) 40 mg PO BID Qty: 60 RF: 0 cyanocobalamin (vitamin B-12) 1,000 mcg capsule 1,000 mcg PO DAILY Qty: 30 RF: 0 Continued (DME) Dexcom G6 Sensor Device See Rx Instructions .ROUTE .MEDSUPPLY Qty: 9 RF: 3 (DME) Dexcom G6 Transmitter Device See Rx Instructions .ROUTE .MEDSUPPLY Qty: 1 RF: 3 (DME) pen needle, diabetic [Novofine 32] 32 gauge x 1/4" needle See Rx Instructions .ROUTE .MEDSUPPLY Qty: 100 RF: 3 paroxetine HCl 30 mg tablet 30 mg PO QAM Qty: 30 RF: 11 metformin 850 mg tablet 850 mg PO BID Qty: 180 RF: 1 Trulicity 1.5 mg/0.5 mL pen injector 1.5 mg subcut WEEKLY Qty: 2 RF: 5 multivitamin [Multiple Vitamins] tablet 1 tab PO QAM RF: 0 iron infusion 1 dose IV DIRECTED PRN (Reason: LOW IRON) RF: 0 gabapentin 300 mg Capsule 300 mg PO HS RF: 0 triamcinolone acetonide 0.1 % cream 1 applic TOP BID PRN (Reason: FLARE UPS) RF: 0 Discontinued meloxicam 15 mg tablet 15 mg PO QPM Qty: 90 RF: 1 omeprazole 20 mg capsule,delayed release(DR/EC) 20 mg PO BID RF: 0 Discharge Orders: Discharge Order (Routine); Ordered 11/16/21 Ordered By: Jenny Roman Admission Data Admit Date/Time: 11/14/21 13:26 Attending Provider: Jenny Roman Admit Provider: Schuyler Askew Primary Care Provider: Usha Rider Other Providers: Schuyler Askew ; Kehinde Thomson Coding Level of Care Code D/C DAY MANAGEMENT >30 MINS Diagnoses Acute blood loss anemia D62 Acute GI bleeding K92.2 Iron deficiency anemia D50.8 Iron deficiency anemia type: other iron deficiency H/O gastric bypass Z98.84 DM2 (diabetes mellitus, type 2) E11.9 Diabetes mellitus microsoft systems engineer insulin use: without penitentiary use Diabetes mellitus complication status: without complication B-cell lymphoma C85.10 B-cell lymphoma type: unspecified B-cell Lymphoma site: unspecified region
--- NOTE | 2021-11-16 12:12 | Gastroenterology Progress Note ---
Date of Service November 16, 2021 Assessment & Plan (1) Symptomatic anemia: Plan: Underwent EGD with DR. Thomson, no abnormal findings. No signs of ongoing GI bleeding Ok to advance diet PPI orally at BID Follow symptoms, if remains stable and no signs of bleeding and tolerating diet, can f/u with [facility] [address] [facility], Patients primary GI team, and discuss Colonoscopy timing and capsule if necessary. Similar presenation and given post gastric bypass anatomy, likely needs chronic oral or iv iron. Call with questions Admission and Anticipated Discharge Date Admission Date: November 14, 2021 Subjective 51 yo femlae reports no new signs of bleeding. Patient has felt well today. walking in room Physical Exam Physical Exam: Constitutional: WD/WN, vitals as above Eyes: PERRLA, EOMI ENMT: external ear and nose normal, oropharynx normal Neck: trachea midline, no thyromegaly Respiratory: normal respiratory effort, lungs clear to auscultation Cardiovascular: RRR, no murmur, no edema Extremities: no calf tenderness Gastrointestinal (Abdomen): normal bowel sounds, soft, nontender, no hepatosplenomegaly Skin: no rashes, warm and dry Neurologic: moves all extremities and awake; not confused Psychiatric: A+Ox3, euthymic affect Results & Data ([facility]) Vital Signs (Past 12 Hours) Vital Signs Temp Pulse Pulse Pulse Resp BP BP 11/16/21 11:45 36.6 C 69 79 18 122/68 108/68 11/16/21 11:37 36.6 C 79 18 122/68 11/16/21 07:45 69 11/16/21 07:21 36.8 C 69 19 108/68 11/16/21 03:45 36.6 C 70 18 104/71 Pulse Ox 11/16/21 11:45 97 11/16/21 11:37 97 11/16/21 07:45 11/16/21 07:21 97 11/16/21 03:45 96
[2021-11-17] MEDS ORDERED: CYANOCOBALAMIN (B-12) 500 MCG TABLET PO SCH (09:00)
== END 2021-11-16 12:20 | disposition home or self-care (01) | DRG 378 ==
LOC: ED 11:10 → SUATTDRO 13:26 → 2S 13:26